=== PATIENT | female | born 1990 | race Two or more races ===

== ENCOUNTER 2021-11-13 11:47 | Inpatient (IN) | payer OTHER ==
[~2021-11-13] VITALS: Ht 152.4 cm; Wt 0.5 kg
[2021-11-13] MEDS ORDERED: PRENATABS RX T1 EACH PO (12:47)
[2021-11-13] MEDS ORDERED: ADULT LOW DOSE81 M1 PO (12:48)
[2021-11-14] MEDS ORDERED: LABETALOL HCL200 MG PO (06:48)
[2021-11-27] MEDS ORDERED: PRENATAL VITAM1 EAC7 (08:50)
[2021-12-08] MEDS ORDERED: LABETALOL HCL200 MG PO (10:37)
[2021-12-08] MEDS ORDERED: NIFEDIPINE ER30 M1 PO (10:40)
== END 2021-12-08 11:55 | disposition home or self-care (01) | DRG 785 ==
LOC: OB/GYN 11:47 → LDR 11:47 → OB/GYN 11-15 19:18 → LDR 11-21 09:32 → OB/GYN 11-26 11:11
PROVIDERS: ADMIT Specialist; ATTEND Specialist
PROC: 4A1HXCZ Monitoring of Products of Conception, Cardiac Rate, External Approach (ICD-10-PCS; 2021-11-13)
PROC: BY4FZZZ Ultrasonography of Third Trimester, Single Fetus (ICD-10-PCS; 2021-11-15)
PROC: B246ZZZ Ultrasonography of Right and Left Heart (ICD-10-PCS; 2021-11-18)
PROC: BY4CZZZ Ultrasonography of Second Trimester, Single Fetus (ICD-10-PCS; 2021-11-21)
PROC: BY4CZZZ Ultrasonography of Second Trimester, Single Fetus (ICD-10-PCS; 2021-11-28)
PROC: 0UB70ZZ Excision of Bilateral Fallopian Tubes, Open Approach (ICD-10-PCS; 2021-12-05)
PROC: 4A033R1 Measurement of Arterial Saturation, Peripheral, Percutaneous Approach (ICD-10-PCS; 2021-12-05)
PROC: 10D00Z1 Extraction of Products of Conception, Low, Open Approach (ICD-10-PCS; principal; 2021-12-05 15:45)
DX: O11.4 Pre-existing hypertension with pre-eclampsia, complicating childbirth (principal); O99.42 Diseases of the circulatory system complicating childbirth; I34.1 Nonrheumatic mitral (valve) prolapse; O60.12X0 Preterm labor second trimester with preterm delivery second trimester, not applicable or unspecified; O76 Abnormality in fetal heart rate and rhythm complicating labor and delivery; O36.5130 Maternal care for known or suspected placental insufficiency, third trimester, not applicable or unspecified; O26.842 Uterine size-date discrepancy, second trimester; O36.8130 Decreased fetal movements, third trimester, not applicable or unspecified; Z30.2 Encounter for sterilization; Z20.822 Contact with and (suspected) exposure to COVID-19; Z3A.23 23 weeks gestation of pregnancy; Z37.0 Single live birth